=== PATIENT | male | born 1965 | race Caucasian/White ===

== ENCOUNTER 2018-09-03 10:27 | Outpatient (CLI) | payer OTHER ==
[2018-09-03] MEDS ORDERED: ISOVUE-370 76%-LOCM 1 ML ONE (11:08)
--- NOTE | 2018-09-03 14:27 | CT ---
CT ABDOMEN AND PELVIS WITH AND WITHOUT CONTRAST: INDICATIONS: Complex renal cyst. COMPARISON: There are no comparison studies. TECHNIQUE: Multiple axial tomograms were obtained through the abdomen and pelvis pre and post IV contrast enhanc ement. The post contrast images were obtained in the portal venous phase and in the delayed venous p hase. FINDINGS: Review of the kidneys on the noncontrast exam reveals a 3 mm calculus in the upper collecting structu res of the left kidney. There are bilateral renal cystic lesions. Parapelvic cysts, right, measure 2.8 cm in the coronal plane. A cyst, inferior right renal cortex, measures 3.5 cm in diameter. Ther e is a tiny 0.8 cm cortical cyst, right mid kidney. There is a 2 cm cyst in the superior left renal cortex. Post contrast images show several tiny low density foci in both kidneys, which are subcentim eter and too small to adequately characterize. The larger lesions all show densities consistent with benign cysts. There is no enhancing mass. No evidence of complex cyst identified. On the post contrast images, both kidneys show equal function and enhancement. On the delayed sequen ce, contrast secretion in the collecting structures is seen. No evidence of hydronephrosis or mucosa l abnormality. The urinary bladder is mildly distended. There is suggestion of mild bladder wall thickening, and th ere is mild prostatic hypertrophy, which does impinge on the floor of the bladder. Bowel loops are unremarkable. The liver, spleen, and pancreas are unremarkable. Numerous small gallstones are seen layering dependently in the gallbladder. The aorta is of normal caliber. The osseous structures are unremarkable. IMPRESSION: 1. Noncontrast images show a 3 mm calculus in the upper collecting structures of the left kidney. 2. There are bilateral renal cystic lesions, which appear benign. Numerous lesions are subcentimete r and too small to adequately characterize. One tiny, exophytic, cystic lesion from the posterior le ft renal cortex, measures approximately 7 mm, too small to adequately characterize, but probably simp le cyst. 3. Mild prostatic hypertrophy and questionable mild bladder wall thickening. 4. Cholelithiasis. POS: [id number]
== END 2018-09-03 10:28 | disposition home or self-care (01) ==
LOC: BICCT 10:27
PROVIDERS: ATTEND Urology
DX: N28.1 Cyst of kidney, acquired (principal); N20.0 Calculus of kidney; K80.20 Calculus of gallbladder without cholecystitis without obstruction; N40.0 Benign prostatic hyperplasia without lower urinary tract symptoms
CPT/HCPCS: 74178

== ENCOUNTER 2023-02-22 05:54 | Day surgery (SDC) | payer SELFPAY ==
[2023-02-20 10:55] VITALS: BMI 34.4
[2023-02-22] MEDS ORDERED: fentaNYL 50 mcg/mL 1 mL Vial ONE (06:43)
[2023-02-22] MEDS ORDERED: Midazolam HCl 2 mg/2 ml Vial ONE (06:43)
[2023-02-22] MEDS ORDERED: Bupivacaine/Epinephrine 0.25% 30 ML VIAL ONE (06:49)
== END 2023-02-22 07:56 | disposition home or self-care (01) ==
LOC: SDC 05:54
PROVIDERS: ATTEND Specialist
DX: L72.0 Epidermal cyst (principal); I10 Essential (primary) hypertension; G47.30 Sleep apnea, unspecified; Z53.8 Procedure and treatment not carried out for other reasons; Z79.899 Other long term (current) drug therapy; Z88.0 Allergy status to penicillin; Z88.2 Allergy status to sulfonamides
CPT/HCPCS: J2250; J3010

== ENCOUNTER 2023-04-24 09:35 | Day surgery (SDC) | payer SELFPAY ==
[2023-04-18 13:47] VITALS: BMI 34.4
[2023-04-24] MEDS ORDERED: Ketorolac Tromethamine 30 MG/ML VIAL ONE (10:29)
[2023-04-24] MEDS ORDERED: Acetaminophen 500 MG TAB ONE (10:29)
[2023-04-24] MEDS ORDERED: Bupivacaine/Epinephrine 0.25% 30 ML VIAL ONE (12:16)
[2023-04-24] MEDS ORDERED: Midazolam HCl 2 mg/2 ml Vial ONE (12:18)
[2023-04-24] MEDS ORDERED: fentaNYL PF 100 MCG/2 ML SYRINGE ONE (12:21)
[2023-04-24] MEDS ORDERED: Famotidine/PF 20 mg/2ml Vial ONE (12:23)
[2023-04-24] MEDS ORDERED: SUGAMMADEX SODIUM 200 MG/2 ML VIAL ONE (12:28)
[2023-04-24] MEDS ORDERED: CEFAZOLIN 2 GM VIAL ONE (12:30)
[2023-04-24] MEDS ORDERED: Sodium Chloride 0.9% 100 ML ONE (12:30)
[2023-04-24] MEDS ORDERED: Rocuronium Bromide 10 MG/ML (10ML VIAL) ONE (12:42)
[2023-04-24] MEDS ORDERED: Dexamethasone 20 MG/5 ML VIAL ONE (12:42)
[2023-04-24] MEDS ORDERED: Ondansetron PF 4 MG/2 ML Vial ONE ×2 (12:42→14:27)
[2023-04-24] MEDS ORDERED: Lidocaine 1% PF 5 ML VIAL ONE (12:42)
[2023-04-24] MEDS ORDERED: PROPOFOL 200 MG/20 ML VIAL ONE (12:42)
[2023-04-24] MEDS ORDERED: Bacitracin Zinc Ointment 30 gm TUBE ONE (13:30)
== END 2023-04-24 15:40 | disposition home or self-care (01) ==
LOC: SDC 09:35
PROVIDERS: ATTEND Specialist
PROC: 0HB6XZZ Excision of Back Skin, External Approach (ICD-10-PCS; principal; 2023-04-24)
DX: L72.0 Epidermal cyst (principal); I10 Essential (primary) hypertension; Z79.899 Other long term (current) drug therapy; Z88.0 Allergy status to penicillin; Z88.2 Allergy status to sulfonamides
CPT/HCPCS: 88304; J1100; J1885; J2250; J2405; J2704; J3490; S0028